=== PATIENT | female | born 1975 | race Caucasian/White ===

== ENCOUNTER → 2016-12-21 | Outpatient (CLI) | payer MEDICARE ==
[~2016-12-21] VITALS: Ht 160 cm; Wt 79.4 kg
[~2016-12-21] MED LIST: CEFTIN250 MG PO; FLOXIN 0.3% OTIC5 ML AD; MACROBID 100 M100 M1 PO; NORCO 7.5-3251 EACH PO
== END ==
LOC: CT 07:00
DX: N18.3 Chronic kidney disease, stage 3 (moderate) (principal); R31.9 Hematuria, unspecified
CPT/HCPCS: 77012; 81001; 88305; 88313; 88346; 88348; J1642; J2550; J7050

== ENCOUNTER 2022-05-10 13:38 | Emergency (ER) | payer MEDICARE ==
[2022-05-10 18:29] LABS: HEMOGLOBIN 13.7 gm/dl (12.3-15.3); RED BLOOD COUNT 4.96 M/UL (4.00-5.10); WHITE BLOOD COUNT 15.7 K/UL (4.5-11.0)
[2022-05-10 18:51] LABS: BUN/CREATININE RATIO 15 (0-10)
[2022-05-10] MEDS ORDERED: CEFUROXIME500 MG PO (20:41)
== END 2022-05-10 22:45 | disposition home or self-care (01) ==
LOC: ER1 13:38
PROVIDERS: Physician Assistant
DX: N39.0 Urinary tract infection, site not specified (principal); E87.6 Hypokalemia; Z87.442 Personal history of urinary calculi; Z90.89 Acquired absence of other organs; Z90.49 Acquired absence of other specified parts of digestive tract
CPT/HCPCS: 80053; 81001; 85025; 96374; 96375; 99284; J0696; J1170; J1642; J1885; J2270; J2405; J2550